=== PATIENT | female | born 1985 | race Caucasian/White ===

== ENCOUNTER → 2017-08-27 | Outpatient (CLI) | payer OTHER ==
[~2017-08-27] MED LIST: ACETAMINOPHEN-1 EAC1 PO; AMOXICILLIN500 M1 PO; APAP/CODEINE ELI5 M1 OR; AUGMENTIN 875875 MG PO; AZITHROMYCIN 2250 MG PO; CIPRO500 MG PO; DIFLUCAN200 MG PO; FLAGYL500 MG PO; FLEXERIL PO; LEVAQUIN 750 M750 MG PO; PREDNISONE50 MG PO; PROAIR HFA8.5 GM INH; SUPRAX400 M1 PO; TRAZODONE HCL50 MG PO; ULTRAM 50MG TAB50 MG PO; VENLAFAXIN75 MG/1 T2 PO; WELLBUTRIN SR150 MG PO
== END ==
LOC: ULTRA 07:28
DX: N83.201 Unspecified ovarian cyst, right side (principal); D25.9 Leiomyoma of uterus, unspecified; N92.0 Excessive and frequent menstruation with regular cycle